=== PATIENT | female | born 1970 | race Two or more races ===

== ENCOUNTER 2016-10-08 14:25 | Emergency (ER) | payer SELFPAY ==
[2016-10-08] MEDS ORDERED: NO HOME MEDICATION XX (14:33)
[2016-10-08] MEDS ORDERED: NORCO 5-325 TA1 EACH PO (16:02)
== END 2016-10-08 16:30 ==
LOC: EDMED 14:25
PROC: 2W3TX1Z Immobilization of Left Foot using Splint (ICD-10-PCS; principal; 2016-10-08)
DX: S92.352A Displaced fracture of fifth metatarsal bone, left foot, initial encounter for closed fracture (principal); X50.1XXA Overexertion from prolonged static or awkward postures, initial encounter; Y92.009 Unspecified place in unspecified non-institutional (private) residence as the place of occurrence of the external cause